=== PATIENT | male | born 1965 | race American Indian/Alaskan Native ===

== ENCOUNTER 2022-12-14 12:03 | Emergency (ER) | payer SELFPAY ==
[2022-12-14] MEDS ORDERED: Sodium Chloride 0.9% 10 ML Syringe FLUSH PRN (13:30)
[2022-12-14] MEDS ORDERED: Sodium Chloride 0.9% 1,000 ML IV SCH (13:45)
[2022-12-14 14:05] LABS: BASOPHILS ABSOLUTE AUTO 0.11 K/mm3 (0.01-0.08); BASOPHILS PERCENT AUTO 1.6 % (0.1-1.2); EOSINOPHILS ABSOLUTE AUTO 0.16 K/mm3 (0.04-0.54); EOSINOPHILS PERCENT AUTO 2.4 (0.8-7.0); HEMATOCRIT 34.5 % (40.1-51.0); HEMOGLOBIN 12.1 gm/dl (13.7-17.5); IMMATURE GRAN ABSOLUTE AUTO 0.01 K/mm3 (0.00-0.10); IMMATURE GRAN PERCENT AUTO 0.1 % (<=1.0); LYMPHOCYTES ABSOLUTE AUTO 1.69 K/mm3 (1.32-3.57); LYMPHOCYTES PERCENT AUTO 25.1 % (21.8-53.1); MEAN CORPUSCULAR HEMOGLOBIN 35.5 pg (25.7-32.2); MEAN CORPUSCULAR HGB CONC 35.1 g/dl (32.2-35.5); MEAN CORPUSCULAR VOLUME 101.2 fl (79.0-92.2); MEAN PLATELET VOLUME 10.9 fl (9.4-12.3); MONOCYTES ABSOLUTE AUTO 1.35 K/mm3 (0.30-0.82); MONOCYTES PERCENT AUTO 20.1 % (5.3-12.2); NEUTROPHILS PERCENT AUTO 50.7 % (34.0-67.9); PLATELET COUNT,PLT 115 K/mm3 (163-337); RED BLOOD CELL COUNT 3.41 M/mm3 (4.63-6.08); WHITE BLOOD CELL COUNT,WBC 6.72 K/mm3 (4.23-9.07)
[2022-12-14 14:17] LABS: INR 1.58; PROTHROMBIN TIME 16.3 SECONDS (9.7-12.0)
[2022-12-14 14:25] LABS: LACTIC ACID 1.2 mmol/L (0.4-2.0)
[2022-12-14 14:29] LABS: A/G RATIO 0.6 (1-2); ALBUMIN 2.4 g/dl (3.4-5.0); ANION GAP 8.8 (5-15); BILIRUBIN TOTAL 6.8 mg/dL (0.2-1.0); BUN/CREATININE RATIO 8.6 (14-18); EST CRCL DRUG DOSING (CG) 107.54 mL/min; MAGNESIUM 1.9 mg/dL (1.8-2.4); POTASSIUM,K 3.8 mEq/L (3.5-5.1)
[2022-12-14 14:31] LABS: CREATININE 0.7 mg/dL (0.7-1.3); PROTEIN TOTAL,TP 6.7 g/dl (6.4-8.2)
[2022-12-14 14:43] LABS: SLIDE REVIEW ABNORMAL SMEAR
[2022-12-14 16:31] LABS: APPEARANCE,URINE CLEAR (Clear); BILIRUBIN,URINE 2+ (Negative); COLOR,URINE DARK YELLOW (Yellow); GLUCOSE,URINE NEGATIVE (Negative); KETONES,URINE NEGATIVE (Negative); LEUKOCYTE ESTERASE,URINE NEGATIVE (Negative); NITRITE,URINE NEGATIVE (Negative); OCCULT BLOOD,URINE NEGATIVE (Negative); PH,URINE 6.5 (5.0-8.0); PROTEIN,URINE NEGATIVE (Negative)
[2022-12-14 16:42] LABS: BARBITURATE SCREEN,URINE NEGATIVE (CUTOFF=200); BENZODIAZEPINES SCREEN,URINE NEGATIVE (CUTOFF=150); BUPRENORPHINE SCREEN,URINE NEGATIVE (CUTOFF=10); METHADONE SCREEN, URINE NEGATIVE (CUT0FF=200); METHAMPHETAMINES SCREEN, URINE NEGATIVE (CUTOFF=500); OXYCODONE SCREEN,URINE NEGATIVE (CUT0FF=100); PROPOXYPHENE SCREEN,URINE NEGATIVE (CUTOFF=300); THC SCREEN,URINE 20 NG/ML NEGATIVE (CUTOFF=50)
[2022-12-14 16:43] LABS: AMPHETAMINES SCREEN, URINE NEGATIVE (CUTOFF=500)
== END 2022-12-14 19:59 | disposition home or self-care (01) ==
LOC: JD.ED 12:03
DX: K74.5 Biliary cirrhosis, unspecified (principal); L03.115 Cellulitis of right lower limb; I10 Essential (primary) hypertension; Z79.899 Other long term (current) drug therapy
CPT/HCPCS: 36415; 71045; 71045-26; 74176; 74176-26; 80053; 80306; 80307; 81003; 82550; 83605; 83735; 83880; 84484; 85025; 85610; 85730; 87040; 93005; 93010; 93971-26-RT; 93971-RT; 96361; 96365; 99284; 99284-25; J3370; J3490; J7030; J7050

== ENCOUNTER 2022-12-16 09:14 | Emergency (ER) | payer SELFPAY | END 2022-12-16 09:48 | disposition home or self-care (01) | LOC: JD.ED 09:14 → JD.EDOUT 09:14 → EDSTATUS 09:25 → JD.ED 09:48 | DX: L03.115 Cellulitis of right lower limb (principal); K74.5 Biliary cirrhosis, unspecified; I10 Essential (primary) hypertension; Z79.899 Other long term (current) drug therapy | CPT/HCPCS: 99282; 99283 ==